=== PATIENT | female | born 1985 | race Caucasian/White ===

== ENCOUNTER 2023-06-23 09:16 | Outpatient (CLI) | payer OTHER, SELFPAY | END 2023-06-23 09:17 | disposition home or self-care (01) | LOC: FRMREF 09:18 | PROVIDERS: PCP Physician Assistant Medical; Visit Provider Registered Nurse | DX: Z01.419 Encounter for gynecological examination (general) (routine) without abnormal findings (principal); Z13.6 Encounter for screening for cardiovascular disorders | CPT/HCPCS: 80061 ==